=== PATIENT | female | born 1985 ===

== ENCOUNTER 2017-08-03 05:42 | Inpatient (IN) | payer OTHER ==
--- NOTE | 2017-08-02 14:24 | MH ---
cc: Akira Mendez MD DATE OF ADMISSION: 08/03/2017 ADMITTING DIAGNOSES: 1. Term . 2. Previous section. HISTORY OF PRESENT ILLNESS: The patient is a 31-year-old white female, para 1-0-0-1, LMP of 11/03/2016, EDC of 08/10/2017. course is benign. First delivery by for macrosomia. Now admitted for repeat section. ADDITIONAL PAST MEDICAL HISTORY: Previous surgery, in 2008, she had fractured leg, 2015 lumbar laminectomy L4-5. MEDICATIONS: Vitamins. ALLERGIES: NONE. TRANSFUSIONS: None. SOCIAL HISTORY: She is . She is horse recreation instructor. Alcohol, tobacco and drugs are none. PHYSICAL EXAMINATION: A well-nourished, well-developed white female. VITAL SIGNS: Stable. Her weight is 262 pounds. Her height is 5 feet 5 inches. HEENT: Normal. CHEST: Clear. HEART: Regular rate. BREASTS: Symmetrical. ABDOMEN: Benign. Gravid, EFW of 4000 grams. Cervix is closed. EXTREMITIES: Normal. Last ultrasound showed vertex presentation, normal fluid, posterior placenta. PLAN: She is now admitted for repeat section. While in the office explained of the procedures, the risks and benefits, complications. The patient elected to proceed. MD DEIRDRE Hernandez/LK , 01:36 PM , 01:52 PM
[~2017-08-03] VITALS: Ht 165.1 cm; Wt 118.0 kg
[2017-08-03] MEDS ORDERED: PRENTAB7 PO (05:58)
[2017-08-03] MEDS ORDERED: LACTATED RINGER'S 1000 ML IV SCH (06:00)
[2017-08-03] MEDS ORDERED: CITRIC ACID-SODIUM CITRATE LIQ 30 ML UDC PO SCH (06:00)
[2017-08-03] MEDS ORDERED: LACTATED RINGER'S 1000 ML IV ONE (06:00)
[2017-08-03] MEDS ORDERED: CEFAZOLIN INJ 2,000 MG in SODIUM CHLORIDE 0.9% INJ 100 ML IV SCH (06:00)
[2017-08-03 06:15] LABS: AUTOMATED NEUTROPHIL # 8.3 TH/MM3 (1.8-7.7); BASOPHIL # 0.1 TH/MM3 (0-0.2); BASOPHIL % 0.6 % (0.0-2.0); EOSINOPHIL # 0.3 TH/MM3 (0-0.4); EOSINOPHIL % 2.3 % (0.0-4.0); HEMOGLOBIN 11.6 GM/DL (11.6-15.3); LYMPH % 21.7 % (9.0-44.0); LYMPHOCYTE # 2.7 TH/MM3 (1.0-4.8); MEAN CELL VOLUME 85.5 FL (80.0-100.0); MEAN CORPUSCULAR HEMOGLOBIN 29.2 PG (27.0-34.0); MEAN CORPUSCULAR HGB CONC 34.1 % (32.0-36.0); MEAN PLATELET VOLUME 8.2 FL (7.0-11.0); MONO % 9.2 % (0.0-8.0); MONOCYTE # 1.2 TH/MM3 (0-0.9); NEUT % 66.2 % (16.0-70.0); PLATELET COUNT 260 TH/MM3 (150-450); RED BLOOD COUNT 3.98 MIL/MM3 (4.00-5.30); RED CELL DISTRIBUTION WIDTH 14.3 % (11.6-17.2); WHITE BLOOD COUNT 12.5 TH/MM3 (4.0-11.0)
[2017-08-03 06:33] LABS: BACTERIA, URINE MANY /hpf; BILIRUBIN, URINE NEG (NEG); BLOOD, URINE NEG (NEG); GLUCOSE,URINE NEG (NEG); KETONE, URINE NEG (NEG); MUCUS URINE FEW /lpf (OCC); NITRITE,URINE NEG (NEG); SQUAMOUS EPITHELIAL CELL URINE 8 /hpf (0-5); URINE COLOR YELLOW (YELLW/STRAW); URINE LEUKOCYTE ESTERASE SMALL (NEG)
[2017-08-03] MEDS ORDERED: MORPHINE SULFATE PF 5 MG/10 ML VIAL ONE (07:20)
[2017-08-03] MEDS ORDERED: METOCLOPRAMIDE HCL 10 MG/2 ML VIAL ONE (07:20)
[2017-08-03] MEDS ORDERED: ACETAMINOPHEN 1000 MG/100 ML 100 ML IV ONE (07:21)
[2017-08-03] MEDS ORDERED: ZOLPIDEM TARTRATE 5 MG TAB PO PRN (07:30)
[2017-08-03] MEDS ORDERED: KETOROLAC TROMETHAMINE 30 MG/ML (IVP) VIAL IV PUSH PRN (07:30)
[2017-08-03] MEDS ORDERED: oxyCODONE/ACETAMINOPHEN 5 MG/325 MG TAB PO PRN ×2 (07:30)
[2017-08-03] MEDS ORDERED: EPIDURAL-DIPHENHYDRAMINE HCL 50 MG/ML VIAL IV PUSH PRN (07:30)
[2017-08-03] MEDS ORDERED: SIMETHICONE 80 MG CHEWABLE TAB PO PRN (07:30)
[2017-08-03] MEDS ORDERED: EPIDURAL-DO NOT ADMINISTER ANTICOAGULANTS PRN (07:30)
[2017-08-03] MEDS ORDERED: DOCUSATE SODIUM 50 MG/SENNA 8.6 MG TAB PO PRN (07:30)
[2017-08-03] MEDS ORDERED: EPIDURAL-DIPHENHYDRAMINE HCL 50 MG CAP PO PRN (07:30)
[2017-08-03] MEDS ORDERED: ONDANSETRON HCL 4 MG/2 ML VIAL IVP PRN (07:30)
[2017-08-03] MEDS ORDERED: ACETAMINOPHEN 1000 MG/100 ML VIAL IV SCH (07:30)
[2017-08-03] MEDS ORDERED: EPIDURAL-NALOXONE HCL 0.4 MG/ML AMP IV PUSH PRN (07:30)
[2017-08-03] MEDS ORDERED: OXYTOCIN 30 UNITS-500ML PREMIX 500 ML IV ONE (07:30)
[2017-08-03] MEDS ORDERED: KETOROLAC TROMETHAMINE 60 MG/2 ML (IM) VIAL IM PRN (07:30)
[2017-08-03] MEDS ORDERED: EPIDURAL-NO SYSTEMIC NARCOTICS PRN (07:30)
--- NOTE | 2017-08-03 08:54 | MP ---
cc: Akira Mendez MD DATE OF OPERATION: 08/03/2017 DATE OF SURGERY: 08/03/2017 PREOPERATIVE DIAGNOSES: 1. Term . 2. Previous section. POSTOPERATIVE DIAGNOSES: 1. Term . 2. Previous section. 3. Delivered. PROCEDURE PERFORMED: Repeat low transverse section. ANESTHESIA: Spinal. SURGEON: Akira Mendez MD BEHAVIORAL HEALTH WORKER: GALINA Alvarez ESTIMATED BLOOD LOSS: About to 600 mL. IV FLUIDS: 2.1 liter crystalloid. OBJECTIVE FINDINGS: Following induction of adequate spinal anesthesia, the patient was prepped and draped supine on the operating table in left lateral tilt position using a sterile fashion with the bladder being drained by Delvalle catheterization. The abdomen opened through a Pfannenstiel incision using a knife to cut down through the skin to the fascia. The fascia was opened transversely, stripped from the muscles, rectus muscle split in the midline and the peritoneum opened sharply without incident. The bladder flap taken down sharply, retracted with a Nic blade. The lower uterine segment was incised transversely with a knife extended, extended with blunt dissection. Membranes revealed clear fluid. Baby was in LOT position. The vacuum extractor applied to the occiput and used to gently lift the head through the uteroabdominal wound. The mouth was suctioned, cord clamped and cut and the baby passed to the awaiting team. Viable vigorous female, Apgars were 8 and 9, weight 8 pounds 5 ounces. Cord blood obtained for typing, the placenta for donation and uterus exteriorized. Uterine wound was then closed in 2 layers of running suture, first with a running locking stitch of 0 Vicryl, second with a running imbricating stitch of 0 Vicryl. On posterior inspection, uterus, tubes, ovaries appeared normal. The uterine was placed back into the abdominal cavity. Irrigation performed, no bleeding was evident, so the bladder flap was closed with a running stitch of 3-0 Vicryl. All laps and retractors were removed. Counts were correct. The anterior peritoneum closed with a running stitch of 2-0 Vicryl. The fascia closed with a running locking stitch of 3-0 Vicryl, corner to the midline and tied. Subcutaneous was closed with running 3-0 Vicryl and the skin with running subcuticular 3-0 Monocryl. Dermabond applied. All counts count were correct and the patient was awakened and taken to the recovery room in good condition. MD DEIRDRE Hernandez/GENEVIEVE , 08:28 AM , 08:54 AM
[2017-08-03] MEDS ORDERED: MEASLES, MUMPS, RUBELLA VACCINE 0.5 ML VIAL SQ ONE (09:00)
[2017-08-03] MEDS ORDERED: ceFAZolin INJ 1,000 MG VIAL IV ONE (12:00)
[2017-08-03] MEDS ORDERED: ONDANSETRON HCL 4 MG/2 ML VIAL IV ONE (12:00)
[2017-08-03] MEDS ORDERED: OXYTOCIN 10 UNIT/ML AMP IV ONE (12:00)
[2017-08-03] MEDS ORDERED: DEXAMETHASONE SOD PHOS 4 MG/ML VIAL IV ONE (12:00)
[2017-08-03] MEDS ORDERED: PHENYLEPH/NS 1000 MCG/10 ML SYR IV ONE (12:00)
[2017-08-03] MEDS ORDERED: SODIUM CHLORIDE 0.9% 20 ML VIAL IV ONE (12:00)
[2017-08-03] MEDS ORDERED: ROCURONIUM INJ 50 MG/5 ML SYRINGE IV PUSH ONE (12:00)
[2017-08-03] MEDS ORDERED: LACTATED RINGER'S 1000 ML INJ 1,000 ML IV ONE (12:00)
[2017-08-03] MEDS ORDERED: ePHEDrine/NS 25 MG/5 ML SYRINGE IV ONE (12:00)
[2017-08-03] MEDS ORDERED: LACTATED RINGER'S 1000 ML INJ 1,000 ML IV SCH (13:04)
[2017-08-03] MEDS: ACETAMINOPHEN 1000 MG/100 ML 100 ML IV SCH (16:39)
[2017-08-03] MEDS ORDERED: OXYTOCIN 30 UNITS-500ML PREMIX 500 ML IV PRN (18:15)
[2017-08-03 20:27] VITALS: BP 116/65; PULSE 67; RESP 18; TEMP 98.1
[2017-08-04] MEDS: ACETAMINOPHEN 1000 MG/100 ML 100 ML IV SCH ×2 (00:09→09:19)
[2017-08-04 00:14] VITALS: BP 114/63; PULSE 82; RESP 18; TEMP 99
[2017-08-04 04:14] VITALS: BP 110/66; PULSE 74; RESP 18; TEMP 98.1
[2017-08-04 05:58] LABS: AUTOMATED NEUTROPHIL # 10.7 TH/MM3 (1.8-7.7); BASOPHIL # 0.1 TH/MM3 (0-0.2); BASOPHIL % 0.4 % (0.0-2.0); EOSINOPHIL # 0.1 TH/MM3 (0-0.4); EOSINOPHIL % 0.9 % (0.0-4.0); HEMATOCRIT 31.1 % (35.0-46.0); HEMOGLOBIN 10.6 GM/DL (11.6-15.3); LYMPH % 17.4 % (9.0-44.0); LYMPHOCYTE # 2.6 TH/MM3 (1.0-4.8); MEAN CORPUSCULAR HEMOGLOBIN 29.2 PG (27.0-34.0); MEAN PLATELET VOLUME 8.2 FL (7.0-11.0); MONO % 8.9 % (0.0-8.0); MONOCYTE # 1.3 TH/MM3 (0-0.9); NEUT % 72.4 % (16.0-70.0); PLATELET COUNT 226 TH/MM3 (150-450); RED BLOOD COUNT 3.62 MIL/MM3 (4.00-5.30); RED CELL DISTRIBUTION WIDTH 14.3 % (11.6-17.2); WHITE BLOOD COUNT 14.8 TH/MM3 (4.0-11.0)
[2017-08-04 06:20] LABS: BICARBONATE 26.8 MEQ/L (21.0-32.0); CREATININE 0.66 MG/DL (0.50-1.00)
[2017-08-04] MEDS: IBUPROFEN 600 MG TAB PO PRN ×2 (15:34→20:57)
[2017-08-04 21:03] VITALS: BP 129/76; PULSE 91; RESP 18; TEMP 98
[2017-08-05] MEDS: IBUPROFEN 600 MG TAB PO PRN (06:23)
[2017-08-05] MEDS ORDERED: OXYC1TAB63 PO (08:35)
--- NOTE | 2017-08-05 08:35 | HHI.DCPOC ---
Discharge Care Plan Report Symptoms to Your Doctor -Temperature above 100.5 degrees -Redness, of incision or excessive or foul smelling drainage -Unusual pain or calf pain -Increased vaginal bleeding -Painful or difficulty urinating -Feelings of extreme sadness or anxiety after 2 weeks Goals to Promote Your Health * To prevent worsening of your condition and complications * To maintain your health at the optimal level Directions to Meet Your Goals Take your medications as prescribed Follow your dietary instruction Follow activity as directed Ensure plenty of rest for recovery Drink fluids for hydration Keep your appointments as scheduled Take your immunizations and boosters as scheduled If your symptoms worsen call your PCP, if no PCP go to Urgent Care Center or Emergency Room Smoking is Dangerous to Your Health. Avoid second hand smoke Call the 24-hour crisis hotline for domestic abuse at Akira Mendez MD Aug 05, 2017 08:35
[2017-08-05] MEDS ORDERED: DIPHTH/TETANUS/ACEL PERTUSSIS (BOOSTER) 0.5 ML VIAL/PFS IM ONE (09:00)
--- NOTE | 2017-08-05 09:22 | MD ---
cc: Akira Mendez MD DATE OF DISCHARGE: 08/05/2017 ADMITTING DIAGNOSIS: 1. Term . 2. Previous section. DISCHARGE DIAGNOSIS: 1. Term . 2. Previous section. 3. Delivered. PROCEDURE: Repeat low transverse section on 08/03/2017. HISTORY OF PRESENT ILLNESS: This is a 31-year-old white female, para 1-0-0-1, with an LMP of 11/03/2016, EDC of 08/10/2017. Her course was benign. Her first delivery by for macrosomia and the patient desired repeat. Her labs were normal. Her GBS culture was positive. HOSPITAL COURSE: On the day of admission, she underwent a repeat low transverse section with delivery of a viable vigorous female, 's 8 and 9, weight 8 pounds 5 ounces. did well. She was discharged home in excellent condition on 08/05/2017. Her pre and postop labs were normal. She was advised NPV, light activity, return checkup in 1 week. Call for any abnormal symptoms. She is . She was given a prescription for Percocet 5 one to two p.o. every 4 hours p.r.n. pain number 30. Akira Mendez MD JAW/DL , 08:42 AM , 09:21 AM
== END 2017-08-05 10:43 | disposition home or self-care (01) | DRG 766 ==
LOC: H2EB 05:42 → H1EA 09:58
PROVIDERS: ADMIT Obstetrics & Gynecology; ATTEND Obstetrics & Gynecology
PROC: 10D00Z1 Extraction of Products of Conception, Low, Open Approach (ICD-10-PCS; principal; 2017-08-03)
DX: O34.211 Maternal care for low transverse scar from previous cesarean delivery (principal); O36.63X0 Maternal care for excessive fetal growth, third trimester, not applicable or unspecified; Z37.0 Single live birth; Z23 Encounter for immunization
CPT/HCPCS: 59025; 80048; 80307; 81001; 85025; 86850; 86900; 86901; 87086; 90707; J0131; J0690; J1100; J2274; J2370; J2405; J2590; J2765; J7120